=== PATIENT | female | born 2000 | race Asian ===

== ENCOUNTER 2024-05-04 10:57 | Emergency (ER) | payer OTHER ==
[~2024-05-04] VITALS: Ht 149.9 cm; Wt 63.6 kg
[~2024-05-04 10:57] MED LIST: NOCURR
[2024-05-04 11:00] VITALS: BP 113/67; PULSE 103; RESP 16; TEMP 98.7; O2SAT 96
[2024-05-04] MEDS ORDERED: BENZ-227 PO (11:02)
[2024-05-04] MEDS ORDERED: ETON68IM4 SD (11:03)
[2024-05-04] MEDS ORDERED: DIPH50CA37 PO (14:23)
[2024-05-04] MEDS ORDERED: ACET-2080 PO (14:23)
[2024-05-04] MEDS ORDERED: ONDA-104 PO (14:23)
== END 2024-05-04 14:44 | disposition admitted as inpatient to this hospital (09) ==
LOC: EMS 14:25
DX: J20.9 Acute bronchitis, unspecified (principal); J06.9 Acute upper respiratory infection, unspecified; R11.10 Vomiting, unspecified
CPT/HCPCS: 71045; 99283